=== PATIENT | female | born 1995 | race Caucasian/White ===

== ENCOUNTER 2022-07-18 13:07 | Outpatient (CLI) | payer MEDICAID ==
[~2022-07-18] VITALS: Ht 170.2 cm; Wt 81.1 kg
[2022-07-18 13:00] VITALS: BP 118/77
[2022-07-18 13:39] LABS: BILIRUBIN,URINE NEGATIVE (NEGATIVE); CLARITY,URINE CLEAR; COLOR,URINE YELLOW; GLUCOSE, URINE (UA) NEGATIVE (NEGATIVE); KETONES,URINE NEGATIVE (NEGATIVE); LEUKOCYTE ESTERASE ,URINE 1+ (NEGATIVE); NITRITE,URINE NEGATIVE (NEGATIVE); PH,URINE 7.5 (5-9); PROTEIN,URINE NEGATIVE (NEGATIVE)
[2022-07-18 13:45] LABS: WBC,URINE RARE /HPF
[2022-07-18 13:46] LABS: BACTERIA,URINE TRACE /HPF
--- NOTE | 2022-07-19 07:53 | Physician Query-Final Dx ---
Clinic Account Progress/Dx Physician Query: Please give diagnosis Please include # weeks gestation Date of Service Jul 18, 2022 at 13:07 JANE,JulJul 19, 2022 07:53
== END 2022-07-18 14:11 | disposition home or self-care (01) ==
LOC: WSo 13:07 → LDRP 13:07 → WSo 14:11
PROVIDERS: ATTEND Family Medicine
DX: Z34.90 Encounter for supervision of normal pregnancy, unspecified, unspecified trimester (principal); Z3A.00 Weeks of gestation of pregnancy not specified
CPT/HCPCS: 81000; 99213

== ENCOUNTER 2022-08-11 03:41 | Outpatient (CLI) | payer MEDICAID ==
[~2022-08-11] VITALS: Ht 170.2 cm; Wt 83.4 kg
[2022-08-11 04:03] VITALS: BP 116/81
[2022-08-11 04:11] VITALS: BP 116/81
[2022-08-11] MEDS ORDERED: PREN1TAB79 PO (04:12)
[2022-08-11] MEDS ORDERED: CETI10CA PO (04:12)
[2022-08-11 04:16] LABS: BILIRUBIN,URINE NEGATIVE (NEGATIVE); CLARITY,URINE CLEAR; GLUCOSE, URINE (UA) NEGATIVE (NEGATIVE); KETONES,URINE 1+ (NEGATIVE); LEUKOCYTE ESTERASE ,URINE TRACE (NEGATIVE); NITRITE,URINE NEGATIVE (NEGATIVE); PROTEIN,URINE NEGATIVE (NEGATIVE)
[2022-08-11 04:27] LABS: BACTERIA,URINE NEGATIVE /HPF; COLOR,URINE YELLOW; SQUAMOUS EPITHELIAL CELL,UR 0-2 /HPF
[2022-08-11 06:30] VITALS: BP 126/69
--- NOTE | 2022-08-12 08:25 | Physician Query-Final Dx ---
JANE,08/12/22 0825: Clinic Account Progress/Dx Physician Query: Please give diagnosis Please include # weeks gestation Date of Service Aug 11, 2022 at 03:41 VARUN WAGONER MD 08/13/22 0128: Clinic Account Progress/Dx DIAGNOSIS: Diagnosis Contractions without cervical change Third trimester 38 weeks gestation ,JulAug 12, 2022 08:25 VARUN WAGONER MD Aug 13, 2022 01:28
== END 2022-08-11 06:30 ==
LOC: WSo 03:41 → LDRP 03:41 → WSo 06:30
PROVIDERS: ATTEND Family Medicine
DX: O47.1 False labor at or after 37 completed weeks of gestation (principal); Z3A.38 38 weeks gestation of pregnancy
CPT/HCPCS: 81000; 99213

== ENCOUNTER 2022-08-12 04:23 | Inpatient (IN) | payer MEDICAID ==
[2022-08-12] VITALS (63 sets, daily range): BP systolic 97–140; BP diastolic 56–86
[~2022-08-12] VITALS: Ht 170.2 cm; Wt 82.8 kg
[~2022-08-12 04:23] MED LIST: CETI10CA PO; PREN1TAB79 PO
[2022-08-12] MEDS: D5 LR IV SOLUTION 1,000 ML IV SCH ×2 (04:50→12:54)
[2022-08-12] MEDS ORDERED: D5 LR IV SOLUTION 1,000 ML IV ONE (04:56)
[2022-08-12] MEDS ORDERED: MINERAL OIL 30 ML UDC TOP PRN (05:00)
[2022-08-12] MEDS ORDERED: CATHETER FLUSH 10 ML SYR IV PRN (05:00)
[2022-08-12 05:03] LABS: BASOPHILS # (AUTO) 0.1 10^3/uL (0.0-0.1); BASOPHILS % (AUTO) 0 % (0-10); EOSINOPHILS # (AUTO) 0.1 10^3/uL (0.0-0.3); EOSINOPHILS % (AUTO) 1 % (0-10); HEMATOCRIT 39 % (35-52); HEMOGLOBIN 13.2 g/dL (11.5-16.0); LYMPHOCYTES # (AUTO) 4.2 10^3/uL (1.0-4.0); LYMPHOCYTES % (AUTO) 30 % (12-44); MEAN CORPUSCULAR HEMOGLOBIN 29 pg (25-34); MEAN CORPUSCULAR HGB CONC 34 g/dL (32-36); MEAN CORPUSCULAR VOLUME 87 fL (80-99); MONOCYTES # (AUTO) 0.9 10^3/uL (0.0-1.0); MONOCYTES % (AUTO) 6 % (0-12); NEUTROPHILS # (AUTO) 8.8 10^3/uL (1.8-7.8); NEUTROPHILS % (AUTO) 63 % (42-75); PLATELET COUNT 360 10^3/uL (130-400); WHITE BLOOD COUNT 14.1 10^3/uL (4.3-11.0)
[2022-08-12] MEDS ORDERED: fentaNYL 2 mcg/ml BUPIVA 0.125 100 ML ONE (05:04)
[2022-08-12] MEDS ORDERED: fentaNYL INJ 100 MCG/2 ML AMP ONE (06:07)
[2022-08-12] MEDS ORDERED: BUPIVACAINE 0.25% 10 ML (SENSORCAINE) VIAL ONE (06:07)
[2022-08-12] MEDS: fentaNYL 2 mcg/ml BUPIVA 0.125 100 ML EPI SCH ×2 (06:30→14:52)
[2022-08-12] MEDS ORDERED: ONDANSETRON 4 MG/2 ML (SDV) Z0FRAN IV PRN (06:45)
[2022-08-12] MEDS ORDERED: NALOXONE 0.4 MG/ML 1 ML (NARCAN) VIAL IV PRN (06:45)
[2022-08-12] MEDS ORDERED: LACTATED RINGERS 1,000 ML IV SCH (06:45)
[2022-08-12] MEDS ORDERED: diphenhydrAMINE 50 MG/ML INJ (BENADRYL) IV PRN (06:45)
--- NOTE | 2022-08-12 08:48 | History & Physical-OB ---
OB - Chief Complaint & HPI Date/Time Date of Admission: Date of Admission: Aug 12, 2022 at 04:44 Date seen by a Provider: Aug 12, 2022 Time Seen by a Provider: 08:15 Chief Complaint/History OB-Reason for Admission/Chief: Onset of Labor Hx : 3 Hx Para: 1011 Expected Date of Delivery: Aug 21, 2022 Gestational Age in Weeks: 38 Gestational Age in Days: 5 History of Labs O+, antibody neg, RI. HIV/HepB/HepC/RPR NR. Abnormal 1 hour glucola, 3 hour all normal. GBS neg. Allergies and Home Medications Allergies Coded Allergies: codeine (Verified Allergy, Unknown, Abdominal Pain, 08/11/22) promethazine (Verified Allergy, Unknown, Rash, 08/11/22) Patient Home Medication List Home Medication List Reviewed: Yes Cetirizine HCl (Zyrtec) 10 Mg Capsule, 10 MG PO DAILY, (Reported) Entered as Reported by: Bertha Anthony on 08/11/22411 Last Action: Reviewed Vit W-Ca,Fe,FA(<1 mg) ( Vitamins) 27 Mg Iron-800 Mcg Tablet, 1 EACH PO, (Reported) Entered as Reported by: Bertha Anthony on 08/11/22411 Last Action: Reviewed OB - History Hx of Present Ultrasounds: Normal mid trimester US Obstetrical Complications: None Medical Complications: None Information Induced Hypertension: No Maternal Gestational Diabetes: No Hemorrhage: No Obstetrical History Hx : 3 Hx Para: 1 Hx # Term Pregnancies: 1 Hx # Pregnancies: 0 Number of Living Children: 1 Hx Total # of Abortions (Spona: 1 Hx Multiple Gestation: No Hx Ectopic : No Hx Stillbirth: No Hx Complication: No Hx Induced Hypertens: No Hx Maternal Gestational Diabet: No Hx Hemorrhage: No Delivery History Hx Dystocia: No Hx Forceps Assisted Delivery: No Hx Vacuum Extraction Assisted: No Hx Placenta Abnormality: No Hx Distress: No Hx Large For Gestational Age I: No Hx Small for Gestational Age I: No Hx Section: No Hx Vaginal Delivery Post C-Sec: No Hx Blood Disorders: No Adverse Rxn to Tranfusion: No Patient Past Medical History PMHx: Ulcerative colitis SurgHx: Knee surgery, EGD, tonsillectomy, tympanostomy tubes Social History/Family History Alcohol Use: Denies Use Recreational Drug Use: No Smoking Cessation: Former smoker 2nd Hand Smoke Exposure: No Immunizations Influenza Vaccine Up-to-Date: Yes; Up-to-Date (04/24/22) COVID19 Booster (Date): 04/24/22 COVID19 Vaccine [facility]: Moderna Bivalent Hepatitis A: Yes Hepatitis B: Yes Tetanus Booster (TDap): Less than 5yrs () Rubella: immune RPR/VDRL: Negative GBS Status: Negative HBsAG: Negative OB - Admission Exam Physical Exam Vitals: Vital Signs 08/12/22 08/12/22 05:40 06:53 Temp 36.4 Pulse 78 Resp 18 B/P (MAP) 101/63 (76) Pulse Ox 98 O2 Delivery Room Air HEENT: NCAT Abdomen: Non tender Cervical Dilatation: 8cm (per nursing) Effacement: 100% (per nursing) Heart Rate: 150's Decelerations: No Decelerations Shelter Variability: Minimal (3-5) Contractions on Admission: < 5 Minutes Apart Labs Laboratory Tests Test 08/12/22 04:50 Range/Units White Blood Count 14.1 H 4.3-11.0 10^3/uL Red Blood Count 4.52 3.80-5.11 10^6/uL Hemoglobin 13.2 11.5-16.0 g/dL Hematocrit 39 35-52 % Mean Corpuscular Volume 87 80-99 fL Mean Corpuscular Hemoglobin 29 25-34 pg Mean Corpuscular Hemoglobin Concent 34 32-36 g/dL Red Cell Distribution Width 12.5 10.0-14.5 % Platelet Count 360 130-400 10^3/uL Mean Platelet Volume 10.0 9.0-12.2 fL Immature Granulocyte % (Auto) 0 % Neutrophils (%) (Auto) 63 42-75 % Lymphocytes (%) (Auto) 30 12-44 % Monocytes (%) (Auto) 6 0-12 % Eosinophils (%) (Auto) 1 0-10 % Basophils (%) (Auto) 0 0-10 % Neutrophils # (Auto) 8.8 H 1.8-7.8 10^3/uL Lymphocytes # (Auto) 4.2 H 1.0-4.0 10^3/uL Monocytes # (Auto) 0.9 0.0-1.0 10^3/uL Eosinophils # (Auto) 0.1 0.0-0.3 10^3/uL Basophils # (Auto) 0.1 0.0-0.1 10^3/uL Immature Granulocyte # (Auto) 0.1 0.0-0.1 10^3/uL OB - Assessment/Plan/Diagnosis Assessment Admission Dx Term intrauterine at 38 weeks gestation Active labor GBS negative Admission Status: Inpatient Order (span 2 midnights) Reason for Inpatient Admission: Labor, delivery and course Plan Plan: Expectant Management VARUN WAGONER MD Aug 12, 2022 08:48
[2022-08-12] MEDS ORDERED: OXYTOCIN PRE-MIX DRIP 500 ML IV ONE (10:42)
--- NOTE | 2022-08-12 15:53 | Labor Progress Note ---
Labor Progress Note Labor Progress Note Date Seen by Provider: Aug 12, 2022 Time Seen by Provider: 15:30 Subjective: Pt denies complaints. Objective: Cervical exam: /- Consistency: soft Position: anterior Presentation: vertex heart tones: 150s beats per minute, moderate variability, reactive Tocometer: 3-4 ctx/10 minutes Assessment/Plan: Emerita Subramanian is a (27 /Para 3 / 1,Gestational Age (wks)38 here for active labor. AROM done at time of exam with clear fluid return, and progression of station to 0. CEFM/TOCO Anesthesia: epidural Anticipate vaginal delivery. Vitals - Labs Vital Signs - I&O Vital Signs Date Time Temp Pulse Resp B/P (MAP) Pulse Ox O2 Delivery O2 Flow Rate FiO2 08/12/22 13:30 74 18 111/71 (84) 100 08/12/22 13:15 61 18 111/68 (82) 100 08/12/22 13:00 65 18 106/68 (81) 100 08/12/22 12:45 72 18 108/66 (80) 97 08/12/22 12:30 68 18 111/70 (84) 100 08/12/22 12:15 74 18 114/74 (87) 100 08/12/22 12:00 36.4 75 18 111/73 (86) 100 08/12/22 11:30 96 18 118/77 (91) 99 08/12/22 11:15 77 18 112/70 (84) 100 08/12/22 11:00 79 18 114/77 (89) 100 08/12/22 10:45 70 18 107/69 (82) 99 08/12/22 10:45 82 18 111/75 (87) 99 08/12/22 10:30 70 18 107/69 (82) 99 08/12/22 10:15 71 18 106/61 (76) 99 08/12/22 10:00 70 18 109/61 (77) 99 08/12/22 09:45 67 18 107/60 (76) 98 08/12/22 09:30 78 18 115/67 (83) 99 08/12/22 09:15 82 18 106/68 (81) 99 08/12/22 09:00 77 18 106/69 (81) 99 08/12/22 08:45 88 18 105/67 (80) 99 08/12/22 08:30 74 18 112/70 (84) 99 08/12/22 08:15 88 18 112/73 (86) 99 08/12/22 08:00 73 18 101/62 (75) 99 08/12/22 07:45 64 18 106/66 (79) 99 08/12/22 07:29 36.1 65 18 97/66 (76) 98 08/12/22 07:15 82 18 101/62 (75) 98 08/12/22 06:53 78 18 101/63 (76) 98 08/12/22 06:49 91 18 108/68 (81) 97 08/12/22 06:43 85 18 107/67 (80) 97 08/12/22 06:38 94 18 105/64 (78) 99 08/12/22 06:33 94 18 109/66 (80) 98 08/12/22 06:28 86 18 111/72 (85) 99 08/12/22 06:23 86 18 115/66 (82) 99 08/12/22 06:18 105 18 129/72 (91) 99 08/12/22 05:40 36.4 82 18 98 Room Air 08/12/22 04:35 36.4 82 18 140/86 (104) 98 Room Air I & O 08/12/22 07:00 Intake Total 1000 ml Balance 1000 ml Labs Laboratory Tests 08/12/22 04:50: White Blood Count 14.1H, Red Blood Count 4.52, Hemoglobin 13.2, Hematocrit 39, Mean Corpuscular Volume 87, Mean Corpuscular Hemoglobin 29, Mean Corpuscular Hemoglobin Concent 34, Red Cell Distribution Width 12.5, Platelet Count 360, Mean Platelet Volume 10.0, Immature Granulocyte % (Auto) 0, Neutrophils (%) (Auto) 63, Lymphocytes (%) (Auto) 30, Monocytes (%) (Auto) 6, Eosinophils (%) (Auto) 1, Basophils (%) (Auto) 0, Neutrophils # (Auto) 8.8H, Lymphocytes # (Auto) 4.2H, Monocytes # (Auto) 0.9, Eosinophils # (Auto) 0.1, Basophils # (Auto) 0.1, Immature Granulocyte # (Auto) 0.1 VARUN WAGONER MD Aug 12, 2022 15:53
--- NOTE | 2022-08-12 18:04 | OB Labor & Delivery Record ---
Vag Delivery Note Vag Delivery Note Date of Delivery: 08/12/22 Preoperative Diagnosis: Emerita Subramanian is a (27 /Para 3 / 1,Gestational Age (wks)38with 6 days Postoperative Diagnosis: Same Surgeon: VARUN WAGONER Anesthesia: Epidural Delivery Type: Findings: Viable male , apgars 9/9, weight 7#8 Lacerations: second degree perineal Intact placenta with 3 vessel cord. Nuchal cord x 1 easily reduced, no body cord or shoulder dystocia Estimated Blood Loss: 150 ml Complications: None Condition: Stable Description of Procedure: The patient is a 27 year old female who presented in active labor. She was admitted and informed consent was obtained. Her labor course was remarkable for prolonged active phase. She progressed to complete dilatation and began to push. She was then set up for delivery. The 's head was delivered atraumatically in the OP position. A nuchal cord was reduced, the shoulders and remainder of the infant's body were then delivered without difficulty. Upon delivery, the was vigorous and placed on maternal chest and the mouth and nares were bu lb suctioned. After a delay cord was doubly clamped and cut and the infant remained on maternal chest. An intact placenta with 3-vessel cord delivered via José Miguel and there was found to be minimal bleeding.~ Vigorous fundal massage was performed and the fundus was found to be firm. IV oxytocin was given. Examination of the vagina and perineum revealed a second degree perineal lacer ation repaired in the usual fashion with 3-0 vicryl rapide suture. Following the repair, sponge, instrument and needle counts were correct. Mom and baby were both in stable condition in the labor suite. Vitals - Labs Vital Signs - I&O Vital Signs Date Time Temp Pulse Resp B/P (MAP) Pulse Ox O2 Delivery O2 Flow Rate FiO2 08/12/22 17:45 84 18 120/59 (79) 100 08/12/22 17:25 125 18 138/63 (88) 100 08/12/22 17:00 36.4 105 18 126/86 (99) 100 08/12/22 16:45 82 18 129/76 (93) 100 08/12/22 16:30 74 18 114/74 (87) 100 08/12/22 16:15 67 18 117/75 (89) 100 2/6/23 16:00 79 18 115/74 (88) 100 08/12/22 15:45 79 18 113/82 (92) 100 08/12/22 15:30 78 18 114/74 (87) 100 08/12/22 15:15 77 18 116/75 (89) 100 08/12/22 15:00 79 18 120/75 (90) 100 08/12/22 14:45 69 18 120/71 (87) 99 08/12/22 14:30 85 18 121/74 (90) 99 08/12/22 14:15 36.4 69 18 110/72 (85) 98 08/12/22 14:00 66 18 109/69 (82) 99 08/12/22 13:45 62 18 116/72 (87) 99 08/12/22 13:30 74 18 111/71 (84) 100 08/12/22 13:15 61 18 111/68 (82) 100 08/12/22 13:00 65 18 106/68 (81) 100 08/12/22 12:45 72 18 108/66 (80) 97 08/12/22 12:30 68 18 111/70 (84) 100 08/12/22 12:15 74 18 114/74 (87) 100 08/12/22 12:00 36.4 75 18 111/73 (86) 100 08/12/22 11:30 96 18 118/77 (91) 99 08/12/22 11:15 77 18 112/70 (84) 100 08/12/22 11:00 79 18 114/77 (89) 100 08/12/22 10:45 70 18 107/69 (82) 99 08/12/22 10:45 82 18 111/75 (87) 99 08/12/22 10:30 70 18 107/69 (82) 99 08/12/22 10:15 71 18 106/61 (76) 99 08/12/22 10:00 70 18 109/61 (77) 99 08/12/22 09:45 67 18 107/60 (76) 98 08/12/22 09:30 78 18 115/67 (83) 99 08/12/22 09:15 82 18 106/68 (81) 99 08/12/22 09:00 77 18 106/69 (81) 99 08/12/22 08:45 88 18 105/67 (80) 99 08/12/22 08:30 74 18 112/70 (84) 99 08/12/22 08:15 88 18 112/73 (86) 99 08/12/22 08:00 73 18 101/62 (75) 99 08/12/22 07:45 64 18 106/66 (79) 99 08/12/22 07:29 36.1 65 18 97/66 (76) 98 08/12/22 07:15 82 18 101/62 (75) 98 08/12/22 06:53 78 18 101/63 (76) 98 08/12/22 06:49 91 18 108/68 (81) 97 08/12/22 06:43 85 18 107/67 (80) 97 08/12/22 06:38 94 18 105/64 (78) 99 08/12/22 06:33 94 18 109/66 (80) 98 08/12/22 06:28 86 18 111/72 (85) 99 08/12/22 06:23 86 18 115/66 (82) 99 08/12/22 06:18 105 18 129/72 (91) 99 08/12/22 05:40 36.4 82 18 98 Room Air 08/12/22 04:35 36.4 82 18 140/86 (104) 98 Room Air I & O 08/12/22 07:00 Intake Total 1000 ml Balance 1000 ml Labs Laboratory Tests 08/12/22 04:50: White Blood Count 14.1H, Red Blood Count 4.52, Hemoglobin 13.2, Hematocrit 39, Mean Corpuscular Volume 87, Mean Corpuscular Hemoglobin 29, Mean Corpuscular Hemoglobin Concent 34, Red Cell Distribution Width 12.5, Platelet Count 360, Mean Platelet Volume 10.0, Immature Granulocyte % (Auto) 0, Neutrophils (%) (Auto) 63, Lymphocytes (%) (Auto) 30, Monocytes (%) (Auto) 6, Eosinophils (%) (Auto) 1, Basophils (%) (Auto) 0, Neutrophils # (Auto) 8.8H, Lymphocytes # (Auto) 4.2H, Monocytes # (Auto) 0.9, Eosinophils # (Auto) 0.1, Basophils # (Auto) 0.1, Immature Granulocyte # (Auto) 0.1 VARUN WAGONER MD Aug 12, 2022 18:04
[2022-08-12] MEDS ORDERED: BENZOCAINE/MENTHOL (DERMOPLAST) 56 ML CAN TP PRN (18:15)
[2022-08-12] MEDS ORDERED: TETANUS,DIPTH,PERTUSS P/F (BOOSTRIX) 0.5 ML VIAL IM ONE (18:15)
[2022-08-12] MEDS ORDERED: WITCH HAZEL(TUCKS) 40 EA JAR TOP PRN (18:15)
[2022-08-12] MEDS ORDERED: OXYTOCIN PRE-MIX DRIP 500 ML IV SCH (18:15)
[2022-08-12] MEDS: IBUPROFEN 600 MG (MOTRIN) TAB PO SCH (18:46)
[2022-08-12] MEDS: DOCUSATE SODIUM 100 MG (COLACE) CAP PO SCH (21:09)
[2022-08-12] MEDS ORDERED: CATHETER FLUSH 10 ML SYR IV SCH (22:00)
[2022-08-12] MEDS ORDERED: ACETAMINOPHEN 500 MG TAB (TYLENOL) ONE (22:35)
[2022-08-12] MEDS: ACETAMINOPHEN 500 MG TAB (TYLENOL) PO PRN (22:36)
[2022-08-13 00:01] VITALS: BP 112/57
[2022-08-13] MEDS: IBUPROFEN 600 MG (MOTRIN) TAB PO SCH ×4 (00:01→18:09)
[2022-08-13 05:31] VITALS: BP 118/66
[2022-08-13 05:39] LABS: BASOPHILS # (AUTO) 0.1 10^3/uL (0.0-0.1); BASOPHILS % (AUTO) 0 % (0-10); EOSINOPHILS # (AUTO) 0.1 10^3/uL (0.0-0.3); EOSINOPHILS % (AUTO) 1 % (0-10); HEMATOCRIT 32 % (35-52); HEMOGLOBIN 10.7 g/dL (11.5-16.0); LYMPHOCYTES # (AUTO) 4.1 10^3/uL (1.0-4.0); LYMPHOCYTES % (AUTO) 28 % (12-44); MEAN CORPUSCULAR HEMOGLOBIN 29 pg (25-34); MEAN CORPUSCULAR HGB CONC 33 g/dL (32-36); MEAN CORPUSCULAR VOLUME 88 fL (80-99); MEAN PLATELET VOLUME 9.8 fL (9.0-12.2); MONOCYTES # (AUTO) 0.9 10^3/uL (0.0-1.0); MONOCYTES % (AUTO) 6 % (0-12); NEUTROPHILS # (AUTO) 9.5 10^3/uL (1.8-7.8); NEUTROPHILS % (AUTO) 65 % (42-75); PLATELET COUNT 282 10^3/uL (130-400); WHITE BLOOD COUNT 14.7 10^3/uL (4.3-11.0)
[2022-08-13 09:15] VITALS: BP 117/70
[2022-08-13] MEDS: DOCUSATE SODIUM 100 MG (COLACE) CAP PO SCH ×2 (09:15→22:14)
[2022-08-13] MEDS: ACETAMINOPHEN 500 MG TAB (TYLENOL) PO PRN (09:18)
--- NOTE | 2022-08-13 10:11 | Anesthesia-Regional Post-Op ---
Regional Patient Condition Mental Status: Alert, Oriented x3 Circulation: Same as Pre-Op Headache: Absent Sensation: Full Recovery Motor Block: Absent Post Op Complications Complications None Follow Up Care/Instructions Patient Instructions None needed. Anesthesia/Patient Condition Patient is doing well, no complaints, stable vital signs, no apparent adverse anesthesia problems. No complications reported per nursing. [place] [facility] [place]: Yes BAILEE MONTEIRO CRNA Aug 13, 2022 10:11
[2022-08-13 12:45] VITALS: BP 113/65
[2022-08-13] MEDS: DIBUCAINE 1% OINTMENT 28 GM TUBE TOP PRN (13:16)
[2022-08-13 16:45] VITALS: BP 109/67
--- NOTE | 2022-08-13 18:45 | Progress Note ---
Subjective Subjective/Events-last exam Doing well. Bleeding slowed. Objective Exam Last Set of Vital Signs Vital Signs Date Time Temp Pulse Resp B/P (MAP) Pulse Ox O2 Delivery O2 Flow Rate FiO2 08/13/22 16:45 36.7 67 18 109/67 (81) 97 Room Air Capillary Refill : Less Than 3 Seconds I&O Intake and Output 08/13/22 00:00 Intake Total 2000 ml Balance 2000 ml Intake IV Total 2000 ml Blood Loss Quantification Method 150 ml Daily Weight Change No General: Alert, Oriented X3, Cooperative Psych/Mental Status: Mental Status NL, Mood NL Results/Procedures Lab Laboratory Tests 08/13/22 05:25: White Blood Count 14.7H, Red Blood Count 3.69L, Hemoglobin 10.7L, Hematocrit 32L , Mean Corpuscular Volume 88, Mean Corpuscular Hemoglobin 29, Mean Corpuscular Hemoglobin Concent 33, Red Cell Distribution Width 12.6, Platelet Count 282, Mean Platelet Volume 9.8, Immature Granulocyte % (Auto) 1, Neutrophils (%) (Auto) 65, Lymphocytes (%) (Auto) 28, Monocytes (%) (Auto) 6, Eosinophils (%) (Auto) 1, Basophils (%) (Auto) 0, Neutrophils # (Auto) 9.5H, Lymphocytes # (Auto) 4.1H, Monocytes # (Auto) 0.9, Eosinophils # (Auto) 0.1, Basophils # (Auto) 0.1, Immature Granulocyte # (Auto) 0.1 Assessment/Plan Assessment/Plan Assessment & Plan PPD#1 s/p at 38w5d following SARAH 2nd degree laceration repair Routine care. ÓSCAR MATHIS DO Aug 13, 2022 18:45
[2022-08-14 00:26] VITALS: BP 112/60
[2022-08-14] MEDS: IBUPROFEN 600 MG (MOTRIN) TAB PO SCH ×3 (00:26→12:21)
[2022-08-14 05:50] VITALS: BP 111/66
[2022-08-14 08:45] VITALS: BP 112/60
[2022-08-14] MEDS: DOCUSATE SODIUM 100 MG (COLACE) CAP PO SCH (08:54)
[2022-08-14] MEDS ORDERED: IBUP-844 PO (09:17)
--- NOTE | 2022-08-14 09:20 | Short Stay Summary ---
Discharge Summary Hospital Course Final Diagnosis: see Hospital Course Hospital Course Date of Admission: Aug 12, 2022 at 04:44 Admission Diagnosis : 1. Spontanous labor at 38w5d Family Physician/Provider:Siddharth Date of Discharge: 08/14/22 Discharge Diagnosis: 1. G3 now P2 s/p following spontanous labor at 38w5d 2. Secondary laceration repair Hospital Course: Routine course Labs and Pending Lab Test: Home Meds Active Ibu (Ibuprofen) 600 Mg Tablet 600 Mg PO Q6H PRN Reported Vitamins ( Vit W-Ca,Fe,FA(<1 mg)) 27 Mg Iron-800 Mcg Tablet 1 Each PO Zyrtec (Cetirizine HCl) 10 Mg Capsule 10 Mg PO DAILY Assessment/Pt Instructions Follow up with Dr. Messina in 6 weeks. Discharge Physical Examination General Appearance: Alert, Oriented X3, Cooperative Psych/Mental Status: Mental Status NL, Mood NL Allergies: Coded Allergies: codeine (Verified Allergy, Unknown, Abdominal Pain, 08/11/22) promethazine (Verified Allergy, Unknown, Rash, 08/11/22) Discharge Summary Date of Admission Aug 12, 2022 at 04:44 Date of Discharge ÓSCAR MATHIS DO Aug 14, 2022 09:20
[2022-08-14] MEDS: DIBUCAINE 1% OINTMENT 28 GM TUBE TOP PRN (11:17)
[2022-08-14 12:30] VITALS: BP 112/60
== END 2022-08-14 12:30 | disposition home or self-care (01) | DRG 807 ==
LOC: WSo 04:23 → LDRP 04:24 → WSo 04:44 → LDRP 21:00
PROVIDERS: ADMIT Family Medicine; ATTEND Family Medicine
PROC: 10E0XZZ Delivery of Products of Conception, External Approach (ICD-10-PCS; principal; 2022-08-12)
PROC: 0KQM0ZZ Repair Perineum Muscle, Open Approach (ICD-10-PCS; 2022-08-12)
DX: O70.1 Second degree perineal laceration during delivery (principal); Z37.0 Single live birth; O69.81X0 Labor and delivery complicated by cord around neck, without compression, not applicable or unspecified; O63.0 Prolonged first stage (of labor); Z3A.38 38 weeks gestation of pregnancy
CPT/HCPCS: 36415; 85025; 86780; 86850; 86900; 86901; 99212